=== PATIENT | female | born 1995 | race Caucasian/White ===

== ENCOUNTER → 2024-03-20 | Outpatient (CLI) | payer OTHER ==
[2024-03-20 13:34] LABS: URIC ACID 2.7 MG/DL (3.1-7.8)
[2024-03-20 13:36] LABS: C REACTIVE PROTEIN QUANTITATIV < 0.40 MG/DL (<1.0)
[2024-03-20 13:37] LABS: IRON (FE) 104 UG/DL (50-170); PERCENT SATURATION 29.1 % (13.2-45.0); RHEUMATOID FACTOR QUANT 6.2 IU/ML (<14); TOTAL IRON BINDING CAPACITY 358 UG/DL (250-425)
[2024-03-20 13:39] LABS: FERRITIN 36.6 NG/ML (7.3-270.7)
[2024-03-20 13:40] LABS: TOTAL 25(OH) VITAMIN D 19.8 NG/ML (20.0-100.0); VITAMIN B12 LEVEL 484 PG/ML (211-911)
[2024-03-24 16:03] LABS: ANA SCREEN, IFA NEGATIVE (NEGATIVE)
[2024-03-25 00:33] LABS: CYCLIC CITRULLINATED PEPTIDE < 16 UNITS (<20)
[2024-03-25 22:02] LABS: LYME TOTAL ANTIBODY CIA <= 0.90 Index (<=0.90)
[2024-03-27 10:02] LABS: HLA-B27 Negative (Negative)
== END ==
LOC: M RAD 11:58
PROVIDERS: ATTEND Physician Assistant
DX: M54.50 Low back pain, unspecified (principal); M54.6 Pain in thoracic spine; R53.83 Other fatigue